=== PATIENT | female | born 1985 | race Caucasian/White ===

== ENCOUNTER 2019-08-01 02:27 | Inpatient (IN) | payer OTHER ==
[~2019-08-01] VITALS: Ht 153.2 cm; Wt 84.0 kg
[2019-08-01] MEDS: LACTATED RINGERS 1,000 ML IV SCH ×2 (02:30→06:05)
[2019-08-01] MEDS ORDERED: OXYTOCIN 30U/ 0.9% NaCL 500ML 500 ML IV ONE (02:49)
[2019-08-01] MEDS ORDERED: D5%-LACTATED RINGERS 1,000 ML IV SCH (02:49)
[2019-08-01] MEDS ORDERED: FENTANYL PF 100 MCG/2ML IV PRN (03:00)
[2019-08-01] MEDS ORDERED: ONDANSETRON 2MG/ML, 2ML IVPush PRN (03:00)
[2019-08-01] MEDS ORDERED: TERBUTALINE 1 MG/ML, 1ML IVPush PRN (03:00)
[2019-08-01] MEDS ORDERED: SODIUM CITRATE/CITRIC ACID 30 ML UDC PO PRN (03:00)
[2019-08-01] MEDS ORDERED: PLEASE ENTER ALLERGIES MC SCH (03:00)
[2019-08-01] MEDS ORDERED: FENTANYL PF 100 MCG/2ML IVPush PRN (03:00)
[2019-08-01] MEDS ORDERED: METOCLOPRAMIDE 5 MG/ML, 2ML IVPush PRN (03:00)
[2019-08-01] MEDS ORDERED: SODIUM CHLORIDE FLUSH 10ML SYR IVF PRN (03:00)
[2019-08-01] MEDS ORDERED: ALUMINUM/MAG/SIMETHICONE 30 ML UDC PO PRN (03:00)
[2019-08-01] MEDS ORDERED: TERBUTALINE 1 MG/ML, 1ML SQ PRN (03:00)
[2019-08-01] MEDS ORDERED: CALCIUM CARBONATE 500 MG TAB.CHEW PO PRN (03:00)
[2019-08-01 03:25] LABS: MEAN CORPUSCULAR HEMOGLOBIN 29.8 pg (27.0-34.8); MEAN CORPUSCULAR HGB CONC 33.7 g/dL (32.4-35.8); MEAN CORPUSCULAR VOLUME 88.3 fL (80-100); MEAN PLATELET VOLUME 10.6 fL (7.4-10.4); PLATELET COUNT 180 x10^3/uL (130-400); RED BLOOD COUNT 4.59 x10^6/uL (3.82-5.3); RED CELL DISTRIBUTION WIDTH 14.4 % (9.6-15.2)
[2019-08-01] MEDS ORDERED: NEWBORN KIT ONE (03:26)
[2019-08-01 03:36] VITALS: BP 134/70
[2019-08-01 03:40] LABS: BASOPHILS # (AUTO) 0.01 x10^3/uL (0-0.1); BASOPHILS % (AUTO) 0 % (0-1); EOSINOPHILS # (AUTO) 0.01 x10^3/uL (0-0.4); EOSINOPHILS % (AUTO) 0 % (1-7); LYMPHOCYTES # (AUTO) 0.48 x10^3/uL (1-3.4); LYMPHOCYTES % (AUTO) 4 % (22-44); MD SCAN; MONOCYTES # (AUTO) 0.15 x10^3/uL (0.2-0.8); MONOCYTES % (AUTO) 1 % (2-9); NEUTROPHILS # (AUTO) 11.76 x10^3/uL (1.8-6.8); NEUTROPHILS % (AUTO) 95 % (42-75)
[2019-08-01] MEDS ORDERED: ONDANSETRON 2MG/ML, 2ML ONE (04:41)
[2019-08-01] MEDS ORDERED: OXYTOCIN 30U/ 0.9% NaCL 500ML 500 ML ONE (06:46)
[2019-08-01] MEDS ORDERED: MISOPROSTOL 200 MCG TABLET PR PRN (07:30)
[2019-08-01] MEDS ORDERED: OXYTOCIN 10 UNITS/ML, 1ML IM PRN (07:30)
[2019-08-01] MEDS ORDERED: BISACODYL 10 MG SUPP PR PRN (07:30)
[2019-08-01] MEDS ORDERED: CARBOPROST TROMETHAMINE 250 MCG/ML, 1ML IM PRN (07:30)
[2019-08-01] MEDS ORDERED: GLYCERIN ADULT SUPP PR PRN (07:30)
[2019-08-01] MEDS: OXYTOCIN 30U/ 0.9% NaCL 500ML 500 ML IV SCH ×2 (07:30→17:30)
[2019-08-01] MEDS ORDERED: METHYLERGONOVINE 0.2 MG/ML IM PRN (07:30)
[2019-08-01] MEDS ORDERED: OXYcodone/APAP 5/325MG TABLET PO PRN ×2 (07:30)
[2019-08-01] MEDS ORDERED: IBUPROFEN 800 MG TABLET PO PRN (07:30)
[2019-08-01] MEDS ORDERED: ACETAMINOPHEN 325 MG TABLET PO PRN ×2 (07:30)
[2019-08-01] MEDS ORDERED: SIMETHICONE 80 MG CHEW TAB PO PRN (07:30)
[2019-08-01] MEDS ORDERED: IBUPROFEN 600 MG TABLET ONE (07:38)
[2019-08-01] MEDS: IBUPROFEN 600 MG TABLET PO PRN ×2 (07:45→21:29)
[2019-08-01] MEDS: PRENATAL VIT/IRON/FA 1 EACH TABLET PO SCH (09:00)
[2019-08-01 09:50] VITALS: BP 112/76
[2019-08-01 13:37] VITALS: BP 108/74
[2019-08-01 15:20] LABS: MEAN CORPUSCULAR HGB CONC 32.7 g/dL (32.4-35.8); MEAN CORPUSCULAR VOLUME 88.6 fL (80-100); MEAN PLATELET VOLUME 10.6 fL (7.4-10.4); PLATELET COUNT 222 x10^3/uL (130-400); RED BLOOD COUNT 4.11 x10^6/uL (3.82-5.3); RED CELL DISTRIBUTION WIDTH 14.5 % (9.6-15.2)
[2019-08-01 15:41] LABS: BASOPHILS # (AUTO) 0.01 x10^3/uL (0-0.1); BASOPHILS % (AUTO) 0 % (0-1); EOSINOPHILS % (AUTO) 0 % (1-7); LYMPHOCYTES # (AUTO) 0.81 x10^3/uL (1-3.4); LYMPHOCYTES % (AUTO) 6 % (22-44); MD SCAN; MONOCYTES # (AUTO) 0.55 x10^3/uL (0.2-0.8); MONOCYTES % (AUTO) 4 % (2-9); NEUTROPHILS # (AUTO) 12.94 x10^3/uL (1.8-6.8); NEUTROPHILS % (AUTO) 90 % (42-75)
[2019-08-01 17:37] VITALS: BP 118/75
[2019-08-01] MEDS: DOCUSATE 100 MG CAPSULE PO PRN (19:23)
[2019-08-01 19:45] VITALS: BP_SYST 119; BP_SYST 129; BP_DIAS 71; BP_DIAS 79
[2019-08-02] VITALS: BP 118/73
[2019-08-02] MEDS: OXYTOCIN 30U/ 0.9% NaCL 500ML 500 ML IV SCH (03:30)
[2019-08-02 03:50] VITALS: BP 104/70
[2019-08-02 08:00] VITALS: BP 118/82
[2019-08-02] MEDS: IBUPROFEN 600 MG TABLET PO PRN (08:10)
[2019-08-02] MEDS: DOCUSATE 100 MG CAPSULE PO PRN (08:11)
[2019-08-02] MEDS: PRENATAL VIT/IRON/FA 1 EACH TABLET PO SCH (08:11)
[2019-08-02] MEDS ORDERED: IBUP-1222 PO (08:58)
== END 2019-08-02 12:00 | disposition home or self-care (01) | DRG 807 ==
LOC: LDOP 02:27 → UNDOADMIN 03:00 → LDIP 03:00 → 2NW 09:22
PROVIDERS: ADMIT Student in an Organized Health Care Education/Training Program; ATTEND Student in an Organized Health Care Education/Training Program
PROC: 10E0XZZ Delivery of Products of Conception, External Approach (ICD-10-PCS; principal; 2019-08-01)
PROC: 0KQM0ZZ Repair Perineum Muscle, Open Approach (ICD-10-PCS; 2019-08-01)
DX: O69.81X0 Labor and delivery complicated by cord around neck, without compression, not applicable or unspecified (principal); Z37.0 Single live birth; O99.52 Diseases of the respiratory system complicating childbirth; J45.909 Unspecified asthma, uncomplicated; O70.1 Second degree perineal laceration during delivery; Z3A.39 39 weeks gestation of pregnancy; Z91.040 Latex allergy status
CPT/HCPCS: 36415; 85025; 86592; 86850; 86900; G0378; J2405; J2590; J7120